=== PATIENT | female | born 1965 | race Caucasian/White ===

== ENCOUNTER 2016-05-04 05:51 | Day surgery (SDC) | END 2016-05-04 11:20 | disposition home or self-care (01) | DX: D23.62 Other benign neoplasm of skin of left upper limb, including shoulder (principal) | CPT/HCPCS: 11423; 88307; J0690; J2250; J3010; Z7512; Z7610 ==

== ENCOUNTER 2016-08-10 22:17 | Emergency (ER) | payer OTHER ==
[~2016-08-10] VITALS: Ht 157.5 cm; Wt 77.2 kg
[~2016-08-10 22:17] MED LIST: DICY20TA59 PO; FAMO20TA18 PO; GABA300C16 PO
[2016-08-10 23:49] VITALS: Ht 157.5 cm; Wt 77.2 kg
[2016-08-11] MEDS ORDERED: KETOROLAC 60 MG INJ IM STA (03:06)
[2016-08-11] MEDS ORDERED: ACETAMINOPHEN 325 MG TAB PO ONE (03:30)
[2016-08-11] MEDS ORDERED: PENICILLIN V K 250 MG TAB PO ONE (03:30)
[2016-08-11] MEDS ORDERED: ACET500C5 PO (03:32)
[2016-08-11] MEDS ORDERED: IBUP-1542 PO (03:32)
[2016-08-11] MEDS ORDERED: PEN500 PO (03:32)
--- NOTE | 2016-08-11 03:54 | ERD ---
ER Documentation Chief Complaint Date/Time DATE: 08/11/16 TIME: 03:[address] AND GEN BODY ACHES X 2 DAYS. HPI 51-year-old female presents here in emergency department for complaint of sore throat bodyaches and fever for 2 days. Patient is complaints of sore throat burning pain 8/10 scale, is worse upon swallowing. Patient denies any coughs shortness of breath or wheezing. Patient denies any ear pain. Patient denies any other symptoms. Patient took dait-kgy-eradvrx DayQuil and neck with mild relief. ROS All systems reviewed and are negative except as per history of present illness. Medications Home Meds Active Scripts Acetaminophen* (Tylophen*) 500 Mg Capsule, 1 CAP PO Q6H Y for PAIN AND OR ELEVATED TEMP, #20 CAP Prov:MARTHA RAYMOND STRATEGY ANALYST 08/11/16 Ibuprofen* (Motrin*) 600 Mg Tab, 600 MG PO Q6H Y for PAIN AND OR ELEVATED TEMP, #30 TAB Prov:MARTHA RAYMOND STRATEGY ANALYST 08/11/16 Penicillin V Potassium* (Penicillin V K*) 500 Mg Tab, 500 MG PO QID, #39 TAB Prov:MARTHA RAYMOND STRATEGY ANALYST 08/11/16 Reported Medications Gabapentin* (Gabapentin*) 300 Mg Capsule, 300 MG PO BID, #60 CAP 05/04/16 Dicyclomine Hcl* (Bentyl*) 20 Mg Tablet, 20 MG PO QID, TAB 10/17/15 Famotidine* (Famotidine*) 20 Mg Tablet, 20 MG PO DAILY, #30 TAB 10/17/15 Allergies Allergies: Coded Allergies: No Known Allergy (Unverified , 08/10/16) PMhx/Soc History of Surgery: Yes (hysterectomy, left hand) Anesthesia Reaction: No Hx Neurological Disorder: No Hx Respiratory Disorders: No Hx Cardiac Disorders: No Hx Psychiatric Problems: No Hx Miscellaneous Medical Probl: Yes (ANEMIA, LEFT THUMB MASS) Hx Alcohol Use: No Hx Substance Use: No Hx Tobacco Use: No Smoking Status: Never smoker FmHx Family History: No coronary disease, No diabetes, No other Physical Exam Vitals Vital Signs Date Time Temp Pulse Resp B/P Pulse Ox O2 Delivery O2 Flow Rate FiO2 08/11/16 04:31 99.5 85 16 103/62 98 Room Air 08/11/16 03:49 101.3 85 97 Room Air 08/10/16 23:49 101.7 100 20 114/83 100 Physical Exam GENERAL: The patient is well developed and appropriate for usual state of health, in no apparent distress. HEENT: Atraumatic. Ears: Normal tympanic membrane, no erythema or bulging. No ear canal swelling. No ear discharge. Nose: normal nasal turbinates, no erythema or swelling. Normal nasal discharge. Throat: oropharynx are edematous with + tonsillar swelling and tonsillar exudates in bilateral tonsils. No lymphadenopathy. CHEST: Clear to auscultation bilaterally. There are no rales, wheezes or rhonchi. HEART: Regular rate and rhythm. No murmurs, clicks, rubs or gallops. No S3 or S4. ABDOMEN: Soft, nontender and nondistended. Good bowel sounds. No rebound or guarding. No gross peritonitis. No gross organomegaly or masses. No Mann sign or McBurney point tenderness. BACK: No midline or flank tenderness. EXTREMITIES: Equal pulses bilaterally. There is no peripheral clubbing, cyanosis or edema. No focal swelling or erythema. Full range of motion. Grossly neurovascularly intact. NEURO: Alert and oriented. Cranial nerves 2-12 intact. Motor strength in all 4 extremities with 5/5 strength. Sensation grossly intact. Normal speech and gait. SKIN: There is no apparent rash or petechia. The skin is warm and dry. HEMATOLOGIC AND LYMPHATIC: There is no evidence of excessive bruising or lymphedema. No gross cervical, axillary, or inguinal lymphadenopathy. Results 24 hrs Current Medications Medications (Trade) Dose Ordered Sig/Lisandro Route PRN Reason Start Time Stop Time Status Last Admin Dose Admin Ketorolac Tromethamine (Toradol) 60 mg ONCE STAT IM 08/11/16 03:06 08/11/16 03:08 DC 08/11/16 03:28 Acetaminophen (Tylenol Tab) 650 mg ONCE ONCE PO 08/11/16 03:30 08/11/16 03:31 DC 08/11/16 03:28 Penicillin V Potassium (Penicillin V K) 500 mg ONCE ONCE PO 08/11/16 03:30 08/11/16 03:31 DC 08/11/16 03:28 Patient was given medication for pain here in emergency department, after treatment, patient verbalized feeling much better. Patient's pain is improved.Patient was given medicines for fever control here in the emergency department. After treatment, patient temperature improved and lower. Patient appears well and is hemodynamically stable. First dose of penicillin VK 500 mg by mouth was given here in emergency department, tolerated oral medication without any difficulty. Procedures/MDM Medical decision making: Patient's symptoms would like is consistent with acute strep pharyngitis. Low suspicion for mononucleosis, no symptoms of peritonsillar abscess, no symptoms of epiglottitis, laryngitis. No oral airway of section noted. Patient was given for penicillin VK, ibuprofen, is advised to salt water gargles, rest, drink a lot of water. First dose of Pen-VK was given here in emergency department. Patient was advised to return to emergency department for any worsening symptoms, follow-up with primary care doctor in 1- 2 days for reevaluation of symptoms. Departure Diagnosis: Primary Impression: Strep pharyngitis Condition: Stable Patient Instructions: Strep Throat MARTHA RAYMOND NP August 11, 2016 03:53
[2016-08-11 04:31] VITALS: BP 103/62; PULSE 85; RESP 16; TEMP 99.5
== END 2016-08-11 04:34 | disposition home or self-care (01) ==
LOC: FTE 22:17
DX: J02.0 Streptococcal pharyngitis (principal)
CPT/HCPCS: J1885; Z7610; 96372

== ENCOUNTER 2017-05-10 12:34 | Emergency (ER) | END 2017-05-10 19:47 | disposition home or self-care (01) ==